=== PATIENT | female | born 1970 | race Caucasian/White ===

== ENCOUNTER 2016-10-24 16:27 | Emergency (ER) | payer OTHER ==
--- NOTE | 2016-10-24 17:02 | UC ---
Throat Pain/Nasal Guero HPI - HPI Summary HPI Summary: Pt presents with c/o nasal congestion, sinus pressure and generalized malaise "for over a week". - History of Current Complaint Chief Complaint: UCRespiratory Stated Complaint: SINUS EARS SORE THROAT Time Seen by Provider: 10/24/16 16:38 Hx Obtained From: Patient Hx Last Menstrual Period: 08/30/16 ?: No Onset/Duration: Gradual Onset, Lasting Days - 9-10 Severity: Mild Associated Signs & Symptoms: Positive: Sinus Discomfort Related History: Seasonal Allergies - Epiglottits Risk Factors Epiglottis Risk Factors: Negative - Allergies/Home Medications Allergies/Adverse Reactions: Allergies Allergy/AdvReac Type Severity Reaction Status Date / Time No Known Allergies Allergy Verified 10/24/16 16:36 PMH/Surg Hx/FS Hx/Imm Hx Previously Healthy: Yes - Surgical History Surgical History: None - Family History Known Family History: Positive: Cardiac Disease - Social History Occupation: Employed Full-time Lives: With Family Alcohol Use: Rare Substance Use Type: None Smoking Status (MU): Former Smoker Have You Smoked in the Last Year: Yes When Did the Patient Quit Smoking/Using Tobacco: jan 2016 Review of Systems Constitutional: Fatigue Skin: Negative Eyes: Negative ENT: Sore Throat, Sinus Congestion, Sinus Pain/Tenderness, Other - nasal congestion Respiratory: Negative Cardiovascular: Negative Gastrointestinal: Negative Genitourinary: Negative Motor: Negative Neurovascular: Negative Musculoskeletal: Arthralgia, Myalgia Neurological: Headache Psychological: Negative All Other Systems Reviewed And Are Negative: Yes Physical Exam Triage Information Reviewed: Yes Appearance: Ill-Appearing Vital Signs: Initial Vital Signs Temp 98.1 F 10/24/16 16:30 Pulse 75 10/24/16 16:30 Resp 16 10/24/16 16:30 BP 132/85 10/24/16 16:30 Pulse Ox 98 10/24/16 16:30 Eye Exam: Normal ENT Exam: Other ENT: Positive: Nasal congestion, Other: - maxillary sinus tenderness Dental Exam: Normal Neck exam: Normal Neck: Positive: Supple Respiratory Exam: Normal Cardiovascular Exam: Normal Musculoskeletal Exam: Normal Neurological Exam: Normal Psychological Exam: Normal Skin Exam: Normal Throat Pain/Nasal Course/Dx - Differential Dx/Diagnosis Differential Diagnosis/HQI/PQRI: Influenza, Sinusitis, URI Provider Diagnoses: sinusitis. seasonal allergies Discharge - Discharge Plan Condition: Stable Disposition: HOME Prescriptions: Amoxicillin PO (*) [Amoxicillin 875 MG (*)] 875 mg PO Q12H #14 tab Cetirizine-Pseudoephedrine [Zyrtec-D Allergy/Congesti] 1 tab PO DAILY #14 tab Patient Education Materials: Sinusitis (ED), Allergies (ED) Referrals: Refugio Albert [Primary Care Provider] - If Needed Additional Instructions: Please follow up with your PCP or return to clinic as needed.
[2016-10-24 17:12] VITALS: BP 132/85
== END 2016-10-24 17:09 | disposition home or self-care (01) ==
LOC: UCCORT 16:27
DX: J32.9 Chronic sinusitis, unspecified (principal); J30.2 Other seasonal allergic rhinitis; Z87.891 Personal history of nicotine dependence
CPT/HCPCS: 99212; G0463

== ENCOUNTER 2017-01-10 12:33 | Emergency (ER) | payer OTHER ==
--- NOTE | 2017-01-10 12:48 | UC ---
Skin Complaint HPI - HPI Summary HPI Summary: 46 year old female with jaw pain. Upper and lower jaw and tooth hypersensitivity left sided .no fever. no slurred speech. no tick bites. diffuse myalgias on the upper back and lower back. has had some sinus pressure above the eyes. no cough. no sick exposure. no n/v/d and no recent dental work. no gum swelling. - History of Current Complaint Chief Complaint: UCGeneralIllness Time Seen by Provider: 01/10/17 12:37 Stated Complaint: HEAD/JAW PAIN Hx Obtained From: Patient Hx Last Menstrual Period: 05/11/15 Onset/Duration: Gradual Onset Timing: Constant Aggravating Factor(s): Touch Alleviating Factor(s): OTC Meds Associated Signs & Symptoms: Positive: Negative - Allergy/Home Medications Allergies/Adverse Reactions: Allergies Allergy/AdvReac Type Severity Reaction Status Date / Time No Known Allergies Allergy Verified 01/10/17 12:47 Review of Systems ENT: Dental Pain, Sinus Pain/Tenderness, Other Is Patient Immunocompromised?: No All Other Systems Reviewed And Are Negative: Yes PMH/Surg Hx/FS Hx/Imm Hx Previously Healthy: Yes - Surgical History Surgical History: None - Family History Known Family History: Positive: None, Cardiac Disease - Social History Occupation: Employed Full-time Lives: With Family Alcohol Use: Rare Substance Use Type: None Smoking Status (MU): Former Smoker Have You Smoked in the Last Year: Yes When Did the Patient Quit Smoking/Using Tobacco: jan 2016 Physical Exam Triage Information Reviewed: Yes Appearance: Well-Appearing, No Pain Distress, Well-Nourished Vital Signs Reviewed: Yes Eye Exam: Normal ENT Exam: Normal ENT: Positive: Normal ENT inspection Dental: Positive: Percussion Tenderness @ - left half of the mouth and gum line. no swelling.. Negative: Gross Decay/Caries @, Dental Fracture @, Abscess @, Bleeding Neck exam: Normal Neck: Positive: 1 Respiratory Exam: Normal Cardiovascular Exam: Normal Musculoskeletal Exam: Normal Neurological Exam: Normal Psychological Exam: Normal Skin Exam: Normal Course/Dx - Course Course Of Treatment: viral infection causing myalgias and cause irritation of the 5th cranial nerve M3 distribution? appears to be viral not bacterial. advised to go to dentists for further eval. no sinus infection bacterial symptoms. cont NSAIDs, APAP and magic mouth wash. RTO if any concerns. She is aware of plan and agreeable - Diagnoses Provider Diagnoses: mouth pain with myalgias Discharge - Discharge Plan Condition: Good Disposition: HOME Prescriptions: Magic Mouth Was-STEPHANIE/MAAL/LIDO* 5 ml SWISH SPIT QID #100 ml Patient Education Materials: Toothache (ED) Referrals: Refugio Albert [Primary Care Provider] - 4 Days Additional Instructions: As we discussed your symptoms of tooth , gum pain with body aches indicates a viral infection. Continue with motrin, tylenol, water intake and rest. If your symptoms worsen or not improved in 3-4 days then go to the Emergency room for further evaluation.
[2017-01-10 12:53] VITALS: BP 143/90
== END 2017-01-10 13:51 | disposition home or self-care (01) ==
LOC: UCCORT 12:33
DX: M79.1 Myalgia (principal); R68.84 Jaw pain; Z87.891 Personal history of nicotine dependence
CPT/HCPCS: 99212; G0463